=== PATIENT | female | born 1970 | race Caucasian/White ===

== ENCOUNTER 2017-12-06 21:20 | Emergency (ER) | payer BC ==
[2017-12-06 21:21] VITALS: BP 153/82
[2017-12-06] MEDS ORDERED: predniSONE 20 MG TAB PO ONE (21:30)
[2017-12-06] MEDS ORDERED: diphenhydrAMINE 25 MG CAP PO ONE (21:30)
[2017-12-06] MEDS ORDERED: DESV50TA9 PO (22:23)
[2017-12-06] MEDS ORDERED: VALS320T12 PO (22:23)
[2017-12-06] MEDS ORDERED: CHOL10005 PO (22:23)
[2017-12-06] MEDS ORDERED: ALBU8.5H IH (22:23)
[2017-12-06] MEDS ORDERED: LISI-374 PO (22:23)
[2017-12-06] MEDS ORDERED: EPIN0.155 SUBQ (22:23)
[2017-12-06] MEDS ORDERED: HYDR-2966 PO (22:23)
[2017-12-06] MEDS ORDERED: MELO-207 PO (22:23)
[2017-12-06] MEDS ORDERED: LEVO-3 PO (22:23)
[2017-12-06] MEDS ORDERED: AMPH20TA18 PO (22:23)
[2017-12-06] MEDS ORDERED: EPIN0.3P15 IM (22:24)
--- NOTE | 2017-12-06 22:26 | ER Report ---
History and Physical Time Seen By MD: 21:21 Hx. of Stated Complaint: PATIENT [place], SHE WAS STUNG BY A BEE, PATIENT IS ALLERGIC TO BEES, SHE GAVE HERSELF A DOSE OF EPI, THEN MADE IT DOWN VERMILION, SHE CONTACTED EMS IN [facility], THEY GAVE HER HIGH FLOW OXYGEN AND ANOTHER DOSE OF EPI. WHEN [facility] ARRIVED THEY GAVE PATIENT ALBUTEROL TREATMENT. HPI/ROS CHIEF COMPLAINT: Allergic reaction HISTORY OF PRESENT ILLNESS: 47-year-old female brought in by EMS after she was stung by a bee under her chin. Patient began having allergic reaction. She gave herself an EpiPen. She began to feel better. EMS picked her up and in route. She began to deteriorate feel worse. They gave her a 2nd dose of epinephrine. After approximate 40 minutes. No Benadryl or steroids was administered. Patient is on prednisone 20 mg twice daily for acute bronchitis. Prescribed by her primary care physician. Patient noted difficulty breathing until she received an albuterol nebulizer by EMS. REVIEW OF SYSTEMS: Respiratory: No cough, no dyspnea. Cardiovascular: No chest pain, no palpitations. Gastrointestinal: No vomiting, no abdominal pain. Musculoskeletal: No back pain. Allergies: Coded Allergies: BEE STINGS (Verified Allergy, Severe, ANAPHLAXSIS, 12/06/17) Penicillins (Verified Allergy, Unknown, 12/06/17) latex (Verified Adverse Reaction, Intermediate, RASH, 12/06/17) Home Meds Active Scripts Epinephrine (EPIPEN 2-HERNAN) 0.3 Mg/0.3 Ml Pen.injctr, 0.3 MG IM PRN for allergic reaction, #1 1 Refill Prov:JAKE MEDINA Jessy DO 12/06/17 Reported Medications Meloxicam (MELOXICAM) 15 Mg Tablet, 15 MG PO QDAY 12/06/17 Cholecalciferol (Vitamin D3) (VITAMIN D3) 1,000 Unit Tablet, 1000 UNIT PO QDAY, TAB 12/06/17 Levothyroxine Sodium (LEVOTHYROXINE SODIUM) 100 Mcg Tablet, 100 MCG PO QDAY, TAB 12/06/17 Albuterol Sulfate 90 Mcg/Act (PROAIR HFA 90 MCG/ACT) 8.5 Gm Hfa.aer.ad, 2 PUFF IH Q4-6H, INHALER 12/06/17 Epinephrine (Epinephrine) 0.15 Mg/0.3 Ml Auto.injct, 0.3 ML SUBQ PRN 12/06/17 Amphet Asp/Amphet/D-Amphet (ADDERALL 20 MG TABLET) 20 Mg Tablet, 20 MG PO BID 12/06/17 Desvenlafaxine Succinate (PRISTIQ ER) 50 Mg Tab.er.24h, PO QDAY 12/06/17 Hydrochlorothiazide (HYDROCHLOROTHIAZIDE) 25 Mg Tablet, 1 TAB PO QDAY, TAB 12/06/17 Valsartan (DIOVAN) 320 Mg Tablet, 320 MG PO QDAY 12/06/17 Lisinopril (LISINOPRIL) 40 Mg Tablet, 40 MG PO QDAY, TAB 12/06/17 Reviewed Nurses Notes: Yes Old Medical Records Reviewed: Yes Hx Substance Use Disorder: No Hx Alcohol Use: Yes Constitutional Vital Sign - Last 24 Hours 12/06/17 12/06/17 12/06/17 12/06/17 21:21 21:50 22:05 22:20 Temp 98.2 Pulse 117 109 110 114 Resp 28 B/P (MAP) 153/82 Pulse Ox 96 97 98 94 O2 Delivery Room Air Physical Exam General Appearance: The patient is alert, has no immediate need for airway protection and no current signs of toxicity.. Vital signs stable, afebrile, pulse ox normal, shaky from epinephrine injection HEENT: Pupils equal and round no injection. TMs normal, oropharynx with mild erythema, no edema Respiratory: Chest is non tender, lungs are clear to auscultation. No wheezing or rails Cardiac: regular rate and rhythm Gastrointestinal: Abdomen is soft and non tender, no masses, bowel sounds normal. Musculoskeletal: Neck: Neck is supple and non tender. Extremities have full range of motion and are non tender. Skin: No rashes or lesions. No hives or flushing DIFFERENTIAL DIAGNOSIS: After history and physical exam differential diagnosis was considered for allergic reaction, insect bite, anaphylaxis, throat edema, bronchospasm, Medical Decision Making ED Course/Re-evaluation ED Course Patient was admitted to an examination room. H&P was done. The differential diagnoses was considered. Patient stable after receiving epinephrine injections. She started on prednisone 40 mg per day. She's given an additional dose of prednisone 2 mg by mouth and Benadryl 25 mg. I'll she is observed for one hour. Her condition remained stable. She has no worsening. She is discharged home and advised to continue on prednisone 40 g per day and use Benadryl 25 mg 3 times a day as needed for itching or hives. Patient's EpiPen prescription was refilled. Patient's advised to go to the nearest ER for any worsening. Decision to Disposition Date: Dec 06, 2017 Decision to Disposition Time: 22:20 Depart Departure Latest Vital Signs Vital Signs Date Time Temp Pulse Resp B/P (MAP) Pulse Ox O2 Delivery O2 Flow Rate FiO2 12/06/17 22:20 114 94 12/06/17 21:21 98.2 28 153/82 Room Air Impression: Primary Impression: Allergic reaction to bee sting Condition: Improved Disposition: HOME OR SELF-CARE New Scripts Epinephrine (EPIPEN 2-HERNAN) 0.3 Mg/0.3 Ml Pen.injctr 0.3 MG IM PRN for allergic reaction, #1 1 Refill Prov: JAKE MEDINA DO 12/06/17 Patient Instructions: Anaphylaxis (ED), General Allergic Reaction (ED) Additional Instructions: Continue the prednisone 20 mg twice daily as prescribed Take Benadryl 25 mg one tablet every 6-8 hours as needed for itching or hives Return to the ER for any worsening JAKE MEDINA DO Dec 06, 2017 22:26
== END 2017-12-06 22:30 | disposition home or self-care (01) ==
LOC: ER 21:27
DX: T63.441A Toxic effect of venom of bees, accidental (unintentional), initial encounter (principal); W57.XXXA Bitten or stung by nonvenomous insect and other nonvenomous arthropods, initial encounter
CPT/HCPCS: 99283; J7512; Q0163

== ENCOUNTER → 2017-12-06 | Outpatient (CLI) | payer BC ==
[~2017-12-06] MED LIST: ALBU8.5H IH; AMPH20TA18 PO; CHOL10005 PO; DESV50TA9 PO; EPIN0.155 SUBQ; EPIN0.3P15 IM; HYDR-2966 PO; LEVO-3 PO; LISI-374 PO; MELO-207 PO; VALS320T12 PO
== END ==
LOC: AMB 20:43
PROVIDERS: ATTEND Nurse Practitioner
DX: T63.441A Toxic effect of venom of bees, accidental (unintentional), initial encounter (principal); R06.02 Shortness of breath
CPT/HCPCS: A0425; A0429